=== PATIENT | male | born 2000 | race Caucasian/White ===

== ENCOUNTER 2022-02-07 18:28 | Emergency (ER) | payer OTHER, SELFPAY ==
[2022-02-07 18:53] VITALS: BP 114/68; PULSE 115; RESP 18; TEMP 36.5; O2SAT 97
--- NOTE | 2022-02-07 19:24 | ED.BACK ---
HPI - Back Pain/Injury General Chief Complaint: Back Pain/Injury Stated Complaint: back pain Time Seen by Provider: 02/07/22 19:11 Source: patient and family Mode of arrival: ambulatory Limitations: no limitations History of Present Illness HPI Narrative: Father presents patient today complaining of mid back pain that started this morning when patient was bending over in the shower. Denies any known injury or trauma. Denies numbness or tingling in the extremities. Denies any loss of bowel or bladder control. Denies any chronic back pain history or surgeries. Pain increases with movement. He has tried ibuprofen today without relief. Related Data Home Medications Medication Instructions Recorded Confirmed desvenlafaxine succinate 100 mg 1 tablet PO DAILY 02/07/22 02/07/22 tablet,extended release 24 hr hydroxyzine HCl 25 mg tablet 1 tablet DAILY 02/07/22 02/07/22 quetiapine 50 mg tablet,extended 2 tablet PO HS 02/07/22 02/07/22 release 24 hr Allergies Allergy/AdvReac Type Severity Reaction Status Date / Time No Known Allergies Allergy Unknown Verified 02/07/22 19:02 Review of Systems Review of Systems: CONSTITUTIONAL: Denies body aches, fever, chills, or sweats. CARDIOVASCULAR: Denies chest pain, palpitations, or edema. RESPIRATORY: Denies cough or dyspnea. GASTROINTESTINAL: Denies abdominal pain, nausea, vomiting, or diarrhea. GENITOURINARY: Denies dysuria or hematuria. SKIN: Denies rash, itching, or wounds. MUSCULOSKELETAL: Denies joint pain, or myalgia.+ Back pain NEUROLOGIC: Denies headache, numbness, tingling, or weakness. PSYCH: Denies depression or anxiety. Exam Narrative: GENERAL: Well-appearing, well-nourished, and in no acute distress. HEAD: Normocephalic, atraumatic. EYES: EOMI. No redness or drainage. Conjunctivae normal. ENT: Mucous membranes pink and moist. NECK: Normal AROM. Neck is nontender. CHEST: No respiratory distress. MUSCULOSKELETAL: Patient has mild spinal tenderness to the lower T-spine that extends to the upper L-spine that extends bilaterally to the paraspinal muscles. Patient states that the musculature is more tender than the spine. Distal sensation is intact in all 4 extremities. Saddle sensation intact. Capillary refill normal. Radial pulses and posterior tibial pulses normal. Handgrips equal and strong. Dorsiflexion and plantarflexion equal and strong against resistance. EXTREMITIES: Normal range of motion. No edema. SKIN: Warm, dry, no rash. Capillary refill normal. Normal skin turgor. NEURO: No focal deficits. Alert and oriented x3. Gait steady. PSYCH: Normal affect. No signs of depression or anxiety. Course Course Level of Care: Express Care Visit Vital Signs Vital signs: Vital Signs Temperature 97.7 F 02/07/22 18:53 Pulse Rate 115 H 02/07/22 18:53 Respiratory Rate 18 02/07/22 18:53 Blood Pressure 114/68 02/07/22 18:53 Pulse Oximetry 97 02/07/22 18:53 Oxygen Delivery Room Air 02/07/22 18:53 Temperature 97.7 F 02/07/22 18:53 Pulse Rate 115 H 02/07/22 18:53 Respiratory Rate 18 02/07/22 18:53 Blood Pressure 114/68 02/07/22 18:53 Pulse Oximetry 97 02/07/22 18:53 Oxygen Delivery Room Air 02/07/22 18:53 Reviewed MDM - Back Pain/Injury Differential Diagnosis Differential diagnosis: Likely strain of lumbar region, thoracic back pain and other (Muscle spasms) Critical Care Time Critical Care Time Critical Care Time: No Discharge Plan Discharge Clinical Impression: Strain of mid-back Qualifiers: Encounter type: initial encounter Qualified Code(s): S29.012A - Strain of muscle and tendon of back wall of thorax, initial encounter Patient Disposition: Home, Self-Care Condition: Stable Instructions: Muscle Spasm (ED) Additional Instructions: Your pain is likely due to muscle spasms in your back. Please take the Flexeril as prescribed. Do not drive within 8 hours of taking the Flexeril as it can make
== END 2022-02-07 19:37 | disposition home or self-care (01) ==
PROVIDERS: Emergency Provider Nurse Practitioner; PCP Physician Assistant
DX: S29.012A Strain of muscle and tendon of back wall of thorax, initial encounter (principal); X58.XXXA Exposure to other specified factors, initial encounter
CPT/HCPCS: 99213; G0463

== ENCOUNTER 2023-05-20 11:29 | Emergency (ER) | payer OTHER, SELFPAY ==
--- NOTE | 2023-05-20 11:31 | ED.EAR ---
HPI - Ear Problem General Chief complaint: Ear Stated complaint: Rt Ear Irritation Time Seen by Provider: 05/20/23 11:31 Source: patient Mode of arrival: ambulatory Limitations: no limitations History of Present Illness HPI Narrative: Patient is a 23-year-old male who presents with 2 weeks of right ear irritation. Patient states he is a frequent Q-tip user and has been using [id number] earwax removal drops because he felt like his ear had wax stuck in it. Patient has history of tinnitus. Denies any changes in hearing. Denies any drainage from ear. Denies any fever, chills, congestion, cough, sore throat, nausea, vomiting, diarrhea. Denies any pain to ear, just feels full. MD Complaint: ear pain Related Data Home Medications Medication Instructions Recorded Confirmed desvenlafaxine succinate 100 mg 1 tablet PO DAILY 02/07/22 02/07/22 tablet,extended release 24 hr hydroxyzine HCl 25 mg tablet 1 tablet DAILY 02/07/22 02/07/22 quetiapine 50 mg tablet,extended 2 tablet PO HS 02/07/22 02/07/22 release 24 hr Allergies Allergy/AdvReac Type Severity Reaction Status Date / Time No Known Allergies Allergy Unknown Verified 02/07/22 19:02 Review of Systems Review of Systems: All systems reviewed & are unremarkable except as noted in HPI and below Constitutional: Constitutional: Denies body ache(s), Denies chills, Denies fever(s), Denies headache(s) and Denies malaise Eyes: Eyes: Denies blurry vision, Denies eye discharge and Denies irritation ENT: Reports otalgia (Fullness), Denies headache(s), Denies nasal congestion, Denies nasal discharge and Denies sore throat Cardiovascular: Cardiovascular: Denies chest pain, Denies edema, Denies palpitations and Denies dyspnea on exertion Respiratory: Respiratory: Denies cough and Denies dyspnea on exertion Gastrointestinal: Gastrointestinal: Denies abdominal pain, Denies diarrhea, Denies nausea and Denies vomiting Musculoskeletal: Musculoskeletal: Denies back pain, Denies arthralgias and Denies muscle weakness Integumentary/Breasts: Skin/Breast: Denies pruritus and Denies rash Neurologic: Denies headache(s) Psychiatric: Psychiatric: Reports no additional psychiatric complaints Endocrine: Endocrine: Denies palpitations PMFSH Comments At time of signature, agree with nursing past medical, surgical, social and family history. There is no relevant family history pertinent to the presenting complaint? Exam Const: General: cooperative, healthy appearing, no acute distress and well nourished Nutritional Appearance: well nourished Orientation/consciousness: patient oriented x3 Limitations: no limitations HENMT: Head: normal to inspection, normocephalic and atraumatic Ears: hearing grossly normal bilaterally, TM normal on the left, no periauricular adenopathy, Abnormal EAC present erythema bilateral and edema bilateral and TM abnormal bulging on the right and erythematous on the right Face/Nose/Sinus: Normal external nose present, Normal nares present, Normal nasal mucous membranes and turbinates present, No nasal discharge present, normal facial exam and sinuses nontender Face and sinus: normal facial exam and sinuses nontender Mouth: Yes Normal oral and palatal mucosa present, Yes lip normal, Yes tongue normal and Yes moist mucous membranes Throat: posterior oropharynx normal, tonsils normal and uvula midline Eyes: General: appearance normal, both eyes and all related structures Alignment and Position: alignment normal and position normal Eyelids: eyelids normal Pupils: Equal, round and reactive pupils present EOM: EOMs intact bilaterally Neck: Neck: normal visual inspection, full ROM, no lymphadenopathy and supple Chest: Chest palpation & inspection: normal inspection of the chest Resp: Effort & Inspection: normal respiratory effort and able to speak in complete sentences Auscultation: clear to auscultation bilaterally, no crackles, no rales, no rhonchi and no whee
[2023-05-20 11:39] VITALS: BP 116/84; PULSE 92; RESP 18; TEMP 36.7
== END 2023-05-20 11:50 | disposition home or self-care (01) ==
PROVIDERS: Emergency Provider Nurse Practitioner Family; PCP Physician Assistant
DX: H60.503 Unspecified acute noninfective otitis externa, bilateral (principal); H66.011 Acute suppurative otitis media with spontaneous rupture of ear drum, right ear
CPT/HCPCS: 99213; G0463

== ENCOUNTER 2024-11-11 12:35 | Emergency (ER) | payer OTHER, SELFPAY ==
--- OUTSIDE RECORDS SUMMARY | 2024-11-11 12:38 | XMS_ITS | Clinical Summary ---
Author Organization [facility] Address [address] [place] [address] Care Team Providers Care Academic Services Professional Name Role Phone Ijeoma Marisol J KILN PULLER Primary Care Provider [phone] Allergies No known active allergies Medications hydrOXYzine (ATARAX) 25 MG tabletIndication s:Insomnia, unspecified type TAKE 2 TABLETS BY MOUTH ONCE DAILY FOR ANXIETY 180 tablet 4 Active Additional Information Patient not taking.Reported on 05/09/2024 amitriptyline (ELAVIL) 25 MG tabletIndication s:Insomnia, unspecified type take 1 tablet by mouth nightly at bedtime 90 tablet 4 Active Additional Information Patient not taking.Reported on 05/09/2024 desvenlafaxine ER 100 MG TABLET SR 24 HR 24 hr tabletIndication s:Autism (HHS/HCC) Take 1 tablet by mouth once daily 90 tablet 4 Active QUEtiapine XR (SEROQUEL XR) 300 MG 24 hr tabletIndication s:Autism (HHS/HCC) Take 1 tablet (300 mg total) by mouth nightly at bedtime. at bedtime 90 tablet 4 Active Active Problems Problem Noted Date Diagnosed Date Autism (HHS/HCC) 11/26/2021 Immunizations Name Administration Dates Next Due Dtap (Generic) 04/23/2006, 3,2002,07/16,2002 Fluzone 6 Months+ Quad (0.5 mL Prefilled Syringe) 06/11/2023 HPV GARDASIL 9-VALENT 03/23/2017,07/01/2016 Hepatitis A (Generic) 03/10/2013,04/20/2012 Hepatitis B 2002,2002 Hib (Generic) 2002 Hib-Hepatitis B (Comvax) 04/11/2003,2002 Influenza (Generic) 06/22/2018 Influenza Adult (Generic) 06/16/2013 MENINGOCOCCAL A C Y&W-135 oligosaccharide (MENVEO) 06/22/2018 MMR (MMRII) 04/23/2006,04/11/2003 Meningcoccal Group B (Bexser o)(aka Meningitis) 07/25/2018,06/22/2018 Meningococcal (Menactra) 04/23/2014 PFIZER COVID-19 (BRIAN CAP), MRNA, LNP-S, PF, 30 MCG/0.3 ML TONYA-SUCROSE, IM 08/28/2021 PFIZER COVID-19 (ORIGINAL FO RMULATION, PURPLE CAP) mRNA, LNP-S, PF, 30 MCG/0.3 ML DOSE 12/05/2020,11/14/2020 Pneumococcal (Prevnar 7) 2002,2002,1 Polio Opv (Generic) 04/23/2006, 3,2002,05/16 Tdap (Generic) 04/20/2012 Varicella (Varivax) 03/18/2007,06/25/2003 Family History Medical History Relation Comments Hyperlipidemia Father Alzheimers Maternal Grandmother Hyperlipidemia Mother Relation Status Comments Father Maternal Grandmother Mother Social History Tobacco Use Types Packs/Day Years Used Date Smoking Tobacco: Never Passive Smoke Exposure: Never Smokeless Tobacco: Never Tobacco Cessation:Counseling Given: Not Answered Alcohol Use Standard Drinks/Week Comments Yes 0 (1 standard drink = 0.6 oz pur e alcohol) Socially PHQ-2 Answer Date Recorded Patient Health Questionnaire-2 Score 1 05/09/2024 Sex and Gender Information Value Date Recorded Sex Assigned at Not on file 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 Gender Identity Not on file Sexual Orientation Not on file Last Filed Vital Signs Vital Sign Reading Time Taken Comments Blood Pressure 120/54 05/09/2024 1:27 PM CDT Pulse 92 05/09/2024 1:27 PM CDT Temperature 36.7 C (98 F) 05/09/2024 1:27 PM CDT Respiratory Rate 20 05/09/2024 1:27 PM CDT Oxygen Saturation 96% 05/09/2024 1:27 PM CDT Inhaled Oxygen Concentration - - Weight 127.5 kg (281 lb) 05/09/2024 1:27 PM CDT Height 182.9 cm (6') 05/09/2024 1:27 PM CDT Body Mass Index 38.11 05/09/2024 1:27 PM CDT Plan of Treatment Health Maintenance Due Date Last Done Comments Annual Physical 2005 Hepatitis C 2020 DTaP, Tdap and Td Vaccines (7 - Td or Tdap) 04/20/2022 04/20/2012, 04/23/2006, 06/25/2003, Additional history exists COVID-19 Vaccine ( season) 2024 08/28/2021, 12/05/2020, 11/14/2020 Influenza Adult (#1) 2024 06/11/2023, 06/22/2018, 06/16/2013 PHQ-2 (Physician [place]) 08/16/2024 05/09/2024 Pneumococcal Vaccine: Pediatrics (0 to 5 Years) and At-Risk Patients (6 to 64 Years) Aged Out 2002, 2002, 2002 No longer eligible based on patient's age to complete this topic Hepatitis B Vaccines Completed 04/11/2003, 2002, 2002, Additional history exists HPV Vaccines Completed 03/23/2017, 07/01/2016 Meningococcal Vaccine Completed 06/22/2018, 014 Meningococcal B Vaccine Completed 07/25/2018, 06/22 RSV Immunizations Under 20 Months Aged Out No longer eligible based on patient's age to complete this topic Insurance [facility] Care Teams Academic Services Professional Relationship Specialty [place] [address] [address] [facility] [place] [address] PCP - General Nurse Practitioner Family 04/10/24
--- OUTSIDE RECORDS SUMMARY | 2024-11-11 12:38 | XMS_ITS | Encounter Summary ---
Author Organization [facility] Address 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
--- OUTSIDE RECORDS SUMMARY | 2024-11-11 12:38 | XMS_ITS | Encounter Summary ---
Author Organization [facility] Address [address] [place] [address] Care Team Providers Care Pad Making Machine Operator Name Role Phone Nazia Bose MD Primary Care Provider [phone] Encounter Details Date Type Department Care Team (Late st Contact Info) Description 2002 Outpatient Historical [facility] Pediatrics - Medical [place] [address] [facility] [address] [address] Nazia Bose MD [address] [facility] [address] [place] [address] Social History Tobacco Use Types Packs/Day Years Used Date Smoking Tobacco: Never Assessed Sex and Gender Information Value Date Recorded Sex Assigned at Not on file Legal Sex Male 4:23 AM RN IMMUNOLOGY Gender Identity Not on file Sexual Orientation Not on file documented as of this encounter Plan of Treatment Not on file documented as of this encounter Visit Diagnoses Not on filedocumented in this encounter Care Teams Pad Making Machine Operator Relationship Specialty Start Date End Date Nazia Bose MD [address] [address] [place] [address] PCP - General 02 documented as of this encounter
--- OUTSIDE RECORDS SUMMARY | 2024-11-11 12:38 | XMS_ITS | Clinical Summary ---
Author Organization [facility] Address [address] [place] [address] Care Team Providers Care Pulp Operator Name Role Phone Sunni Fermin MD Primary Care Provider [phone] [facility],non-owned Affiliates and Associated Physician Practices is amultiple site organization consisting of ambulatory clinics and hospital sitesin [place], [place], [place] and [place]. This disclosure is being madepursuant to the Care Everywhere program and may not contain all information available regarding this patient. Last updated [facility] Allergies No known active allergies Medications * Be aware that medications may not be up to date on this document. Alwaysverify current medications with the patient. Medication Sig Dispensed Refills Start Date End Date Status escitalopram (LEXAPRO) 10 MG tablet Take 10 mg by mouth once daily. 1.5 tablets for 15 mg total Active Active Problems Problem Noted Date Diagnosed Date Other closed fractures of distal end of radius ( alone) 08/23/2014 Social History Tobacco Use Types Packs/Day Years Used Date Smoking Tobacco: Never Alcohol Use Standard Drinks/Week Comments No 0 (1 standard drink = 0.6 oz pur e alcohol) Sex and Gender Information Value Date Recorded Sex Assigned at Not on file Gender Identity Not on file Sexual Orientation Not on file Last Filed Vital Signs Vital Sign Reading Time Taken Comments Blood Pressure - - Pulse - - Temperature - - Respiratory Rate - - Oxygen Saturation - - Inhaled Oxygen Concentration - - Weight 57.3 kg (126 lb 6.4 oz) 08/23/2014 2:27 P M PATCHER WOOD WELDER Height 154 cm (5' 0.63 ) 08/23/2014 2:27 PM PATCHER WOOD WELDER Body Mass Index 24.18 08/23/2014 2:27 PM PATCHER WOOD WELDER Plan of Treatment Health Maintenance Due Date Last Done Comments HIV SCREENING 2017 HPV VACCINE (1 - Male 3-dose series) 2017 MENINGOCOCCAL (Group B) VACC INE SHARED DECISION-MAKING (1 of 2 - Standard) 2018 HEPATITIS C SCREENING 03/17/2020 DTAP/TDAP/TD VACCINES (1 - Tdap) 2021 HEPATITIS B VACCINE (1 of 3 - 19+ 3-dose series) 2021 COVID-19 VACCINE (1 - 2023-2 5 season) 2024 INFLUENZA VACCINE (#1) 2024 DEPRESSION SCREENING 08/16/2024 ZOSTER VACCINE (1 of 2) 2052 HIB VACCINE Aged Out No longer eligi ble based on patient's age to complete this topic MENINGOCOCCAL GROUPS A/C/Y/W VACCINE Aged Out No longer eligible b ased on patient's age to complete this topic PNEUMOCOCCAL VACCINE Aged Out No long er eligible based on patient's age to complete this topic Care Teams Pulp Operator Relationship Specialty Start Date End Date Sunni Fermin MD [address] [place] [address] PCP - General Pediatrics 08/20/14
--- OUTSIDE RECORDS SUMMARY | 2024-11-11 12:38 | XMS_ITS | Encounter Summary ---
Author Organization [facility] Address [facility] [place] [address] Care Team Providers Care Regional Trainer Name Role Phone Anamaria Pruett PA Primary Care Provider [phone] Marisol Raphael NP Primary Care Provider [phone] Reason for Referral * Consultation (Routine) - New Request Specialty Diagnoses / Procedures Referred By Contact Referred To Contact SLEEP & RESPIRATORY CARE Diagnoses Has daytime drowsiness Snoring Procedures OFFICE/OUTPATIENT NEW LOW MDM 30-44 MINUTES OFFICE/OUTPT VISIT,NEW,LEVL IV OFFICE/OUTPT VISIT,NEW,LEVL V OFFICE/OUTPT VISIT,EST,LEVL III OFFICE/OUTPT VISIT,EST,LEVL IV OFFICE/OUTPT VISIT,EST,[place] [address] [place] [address] Phone: tel: fax: [facility] Pul[facility] - [address] [place] [address] Phone: tel: fax: Referral ID Status Reason Start Date Expiration Date Visits Requested Visits Authorized [id number] New Request Specialty Services 11/17/2023 12/16/2024 1 1 Encounter Details Date Type Department Care Team (Late st Contact Info) Description 11/17/2023 MyChart Message Enc [facility] Family & Internal Medicine [facility] [address] [place] [address] [place] [address] [place] [address] Psychiatry follow up Social History Tobacco Use Types Packs/Day Years Used Date Smoking Tobacco: Never Passive Smoke Exposure: Never Smokeless Tobacco: Never Alcohol Use Standard Drinks/Week Comments Never 0 (1 standard drink = 0.6 oz pur e alcohol) PHQ-2 Answer Date Recorded Patient Health Questionnaire-2 Score 0 12/15/2022 Sex and Gender Information Value Date Recorded Sex Assigned at Not on file 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 Gender Identity Not on file Sexual Orientation Not on file documented as of this encounter Plan of Treatment Scheduled Referrals Name Type Priority Associated Diagnoses Orde r Schedule Ambulatory referral to Pulmonology ([facility]) Referral Routine Has daytime drowsiness Snoring Ordered: 11/17/2023 documented as of this encounter Visit Diagnoses Diagnosis Has daytime drowsiness- Primary Snoring Other dyspnea and respiratory abnormality documented in this encounter Care Teams Regional Trainer Relationship Specialty Start [place] [address] [place] [address] PCP - General PHYSICIAN AZURE ARCHITECT 10/01/21 04/09/24 [place] [address] [facility] [address], [place] [address] PCP - General Nurse Practitioner Family 04/10/24 documented as of this encounter
--- OUTSIDE RECORDS SUMMARY | 2024-11-11 12:38 | XMS_ITS | Encounter Summary ---
Author Organization [facility] Address [address] [place] [address] Care Team Providers Care Byproduct Engineer Name Role Phone Nazia Bose MD Primary Care Provider Encounter Details Date Type Department Care Team (Late st Contact Info) Description 2002 Outpatient Historical [facility] Pediatrics - 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
--- OUTSIDE RECORDS SUMMARY | 2024-11-11 12:38 | XMS_ITS | Encounter Summary ---
Author Organization [facility] Address [address] [facility] Attn: [place] [address] Care Team Providers Care Automotive Porter Name Role Phone Nazia Bose MD Primary Care Provider [phone] Encounter Details Date Type Department Care Team (Late st Contact Info) Description 2002 Inpatient Historical Matthieu Benton MD [address] [place] [address] [address] [place], [place] [id number] Nazia Bose MD [address] [place] [address] [address] [place] [address] TWIN,MATE [id number]/DELIVERY (Primary Dx) Social History Tobacco Use Types Packs/Day Years Used Date Smoking Tobacco: Never Assessed Sex and Gender Information Value Date Recorded Sex Assigned at Not on file 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
--- OUTSIDE RECORDS SUMMARY | 2024-11-11 12:38 | XMS_ITS | Clinical Summary ---
Author Organization [facility] Address [address] [place] [address] Phone Care Team Providers Care Varsity Baseball Coach Name Role Phone Nazia Bose MD Primary Care Provider [phone] Allergies No known active allergies Medications No known medications Active Problems Problem Noted Date Diagnosed Date Autism spectrum disorder 09/28/2019 Severe episode of recurrent major depressive disorder, without psychotic features Social History Tobacco Use Types Packs/Day Years Used Date Smoking Tobacco: Never Smokeless Tobacco: Never Alcohol Use Standard Drinks/Week Comments Never 0 (1 standard drink = 0.6 oz pur e alcohol) Sex and Gender Information Value Date Recorded Sex Assigned at Not on file 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 Gender Identity Not on file Sexual Orientation Not on file Last Filed Vital Signs Vital Sign Reading Time Taken Comments Blood Pressure 111/67 10/04/2019 8:25 AM METER READING CLERK Pulse 98 10/04/2019 8:25 AM METER READING CLERK Temperature 36.3 C (97.4 F) 10/04/2019 8:25 AM METER READING CLERK Respiratory Rate 16 10/04/2019 8:25 AM METER READING CLERK Oxygen Saturation 99% 10/04/2019 8:25 AM METER READING CLERK Inhaled Oxygen Concentration - - Weight 93.9 kg (207 lb) 09/29/2019 10:14 AM METER READING CLERK Height 182.9 cm (6') 09/27/2019 7:34 PM METER READING CLERK Body Mass Index 28.07 09/27/2019 7:34 PM METER READING CLERK Plan of Treatment Health Maintenance Due Date Last Done Comments HPV VACCINES (1 - Male 3-dos e series) 2017 DTAP/TDAP/TD VACCINES (1 - Tdap) 2021 HEPATITIS B VACCINES (1 of 3 - 19+ 3-dose series) 2021 INFLUENZA VACCINE (#1) 2024 PNEUMOCOCCAL VACCINE 0-49 YEARS Aged Out No longer eligible based on patient's age to complete this topic Insurance [employer] OPEN ACCESS O [employer] OPEN ACCESS [facility] OPEN ACCESS HMO Care Teams Varsity Baseball Coach Relationship Specialty Start Date End Date Nazia Bose MD [address] [place] [id number] PCP - General 02
--- OUTSIDE RECORDS SUMMARY | 2024-11-11 12:38 | XMS_ITS | Encounter Summary ---
Author Organization [facility] Address [facility] [place] [address] Care Team Providers Care Sewer Name Role Phone Anamaria Pruett Primary Care Provider + [phone] Marisol Raphael NP Primary Care Provider + [phone] Encounter Details Date Type Department Care Team (Late st Contact Info) Description 09/11/2023 [employer] 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 [place] [address] PCP - General Nurse Practitioner Family 04/10/24 documented as of this encounter
[2024-11-11 12:49] VITALS: PULSE 87; RESP 18; TEMP 36.4; O2SAT 97
--- NOTE | 2024-11-11 12:52 | ED.GENADULT ---
HPI - General Adult General Chief complaint: Upper Respiratory Infection Stated complaint: cold/sob/fever/sinus Time Seen by Provider: 11/11/24 12:52 Source: patient Mode of arrival: ambulatory Limitations: no limitations History of Present Illness HPI narrative: 24-year-old male patient presents the [facility] with complaints of cold symptoms for the past week as per caregiver however patient states they have only had symptoms for few days. Patient states he started running 100 point to fever yesterday today was only 99. Patient states they have been taking some [id number] cough and cold medication including Sudafed for the symptoms. Patient states he has had some congestion a little bit of a runny nose and a cough denies chest pain or shortness of breath at rest. Denies any pain to the throat ears today. Related Data Home Medications ?Medication ?Instructions ?Recorded ?Confirmed ?Last Taken ?Type desvenlafaxine succinate 100 mg 1 tablet PO DAILY 02/07/22 02/07/22 Unknown History tablet,extended release 24 hr quetiapine 50 mg tablet,extended 2 tablet PO HS 02/07/22 02/07/22 Unknown History release 24 hr Allergies Allergy/AdvReac Type Severity Reaction Status Date / Time No Known Allergies Allergy Unknown Verified 11/11/24 12:48 Review of Systems Review of Systems: CONSTITUTIONAL: Positive fever, denies chills, or sweats. EYES: Denies visual changes, redness, or discharge. ENT: positive rhinorrhea, congestion, denies sore throat, or otalgia. CARDIOVASCULAR: Denies chest pain, palpitations, or edema. RESPIRATORY: positive cough , denies dyspnea at rest. GASTROINTESTINAL: Denies abdominal pain, nausea, vomiting, or diarrhea. GENITOURINARY: Denies dysuria or hematuria. SKIN: Denies rash or itching. MUSCULOSKELETAL: Denies back pain, joint pain, or myalgia. NEUROLOGIC: Denies headache, numbness, or weakness. PSYCHIATRIC: Denies anxiety or depression. PMFSH Past Medical History Medical History (Updated 11/11/24 @ 13:23 by NANI Ramon) Asthma Asperger's disorder Comments At the time of my signature I agree with nursing past medical history, surgical, social, and family history. There is no relevant family history pertinent to the presenting complaint. Exam Narrative: GENERAL: Well-appearing, well-nourished, and in no acute distress. HEAD: Normocephalic, atraumatic. EYES: PERRLA and EOMI. ENT: Nares with erythema edema noted bilateralr, no rhinorrhea or epistaxis. Mucous membranes moist. posterior pharynx with some postnasal drip noted. No tonsillar enlargement, no exudates or lesions present. Bilateral TMs are clear no erythema foreign bodies the canal. NECK: Supple. No lymphadenopathy CHEST: Clear to auscultation. No respiratory distress. HEART: Regular rate and rhythm. No murmur heard. Normal peripheral pulses. ABDOMEN: Soft, nontender, nondistended, normal active bowel sounds. EXTREMITIES: Normal range of motion. No edema. SKIN: Warm, dry, no rash. NEURO: No focal deficits. Alert and oriented x3. Course Course Level of Care: Express Care Visit Vital Signs Vital signs: Vital Signs Temperature 36.4 C 11/11/24 12:49 Pulse Rate 87 11/11/24 12:49 Respiratory Rate 18 11/11/24 12:49 Pulse Oximetry 97 11/11/24 12:49 Temperature 36.4 C 11/11/24 12:49 Pulse Rate 87 11/11/24 12:49 Respiratory Rate 18 11/11/24 12:49 Pulse Oximetry 97 11/11/24 12:49 vital signs reviewed. Blood pressure was taken manually and was 118/82. Medical Decision Making MDM Narrative Medical decision making narrative: Plan of care for patient is to discharge home and encouraged continue supportive care including [id number] medications, Tylenol, ibuprofen for fevers and pain as well as warm salt water gargles hot tea and honey as needed for any throat pain. Discussed with patient and caregiver that if patient continues to have worsening symptoms that go on past 2 weeks and he needs to be receding for and re-evaluated. They are aware of plan of care denies any other questions or concerns at this time. Differential Diagnosis Differential Diagnosis: Differential diagnosis: Allergic rhinitis, chronic sinusitis, tonsillitis, acute sinusitis, infectious mononucleosis, seasonal influenza, pertussis, diphtheria, meningococcal disease, viral syndrome, viral bronchitis, RSV, COVID-19 Vital Signs Vital Signs: Vital Signs Temperature 36.4 C 11/11/24 12:49 Pulse Rate 87 11/11/24 12:49 Respiratory Rate 18 11/11/24 12:49 Pulse Oximetry 97 11/11/24 12:49 Temperature 36.4 C 11/11/24 12:49 Pulse Rate 87 11/11/24 12:49 Respiratory Rate 18 11/11/24 12:49 Pulse Oximetry 97 11/11/24 12:49 Lab Data Labs: Lab Results 11/11/24 Range/Units 13:14 POC Influenza A Ag Negative (Negative) POC Influenza B Ag Negative (Negative) POC SARS CoV-2 Ag Negative (Negative) Critical Care Time Critical Care Time Critical Care Time: No Discharge Plan Discharge Clinical Impression: Viral URI with cough Patient Disposition: Home, Self-Care Condition: Stable Instructions: Antibiotic Form, Viral Syndrome (ED) Additional Instructions: Viral illness may last between 7-12days; antibiotic is NOT recommended at this time. Recommend antihistamine such as Benadryl at night time and Claritin/Zyrtec/Luz Maria during the day Cough syrup may cause drowsiness; avoid driving or take it at night time. Also, recommend symptomatic treatment includes: rest, fluids, and increase humidity of the air at home. Recommend Acetaminophen or nonsteroidal anti-inflammatory agents (NSAIDs) as directed in the bottle to reduce fever and/pain/headache. Avoid smoking/second-hand smoke. Limit visits to areas with large crowds. Please schedule a follow-up visit with your personal physician for further evaluation and treatment within 3-5days. Including recheck and discussion of your blood pressure. If your symptoms persist, change or worsen significantly before you can contact your personal physician then please, without delay, go to the emergency department for further evaluation. Patient Language: Yoruba Prescriptions: No Action desvenlafaxine succinate 100 mg tablet extended release 24 hr 1 tablet PO DAILY quetiapine 50 mg tablet extended release 24 hr 2 tablet PO HS Follow-up/Referrals: UNKNOWN,DOCTOR [Primary Care Provider] - Time of Disposition: 13:23
--- NOTE | 2024-11-11 13:03 | PC.NURSE ---
1249- pt not tolerating blood pressure, not able to sit still. LINING [employer]ER notified.
[2024-11-11 13:15] LABS: EDCOVIDSCREEN Negative (Negative); EDINFLUASCREEN Negative (Negative); EDINFLUBSCREEN Negative (Negative)
[2024-11-11 13:22] VITALS: BP 118/82
== END 2024-11-11 13:26 | disposition home or self-care (01) ==
PROVIDERS: Emergency Provider Nurse Practitioner Family
DX: J06.9 Acute upper respiratory infection, unspecified (principal); F84.5 Asperger's syndrome; Z20.822 Contact with and (suspected) exposure to COVID-19
CPT/HCPCS: 87426; 87804; 99212; G0463